=== PATIENT | male | born 1975 | race Caucasian/White ===

== ENCOUNTER 2019-07-04 13:05 | Day surgery (SDC) | payer OTHER ==
[2019-06-26 15:24] VITALS: BMI 39.1
[~2019-07-04 13:05] MED LIST: DEXAMETHASONE SOD PHOSPHATE 10 MG/ML 1 ML VIAL IV ONE; HYDROmorphone 0.5 MG/0.5 ML SYRINGE IVP PRN; LIDOCAINE 1% 20 ML VIAL (10MG/ML) FOR IV START INTRADERMA PRN; MIDAZOLAM 2 MG/2 ML VIAL IV PRN; ONDANSETRON 4 MG/2 ML VIAL IVP ONE; ceFAZolin 3 GM in SODIUM CHLORIDE 0.9% 100 ML IVPB ONE; fentaNYL (PF) 50 MCG/ML 2 ML AMP IVP PRN
[2019-07-04] MEDS: LACTATED RINGERS 1,000 ML IV SCH ×2 (14:00→23:42)
[2019-07-04] MEDS ORDERED: PROPOFOL 10 MG/ML 20 ML VIAL IV ONE (17:09)
[2019-07-04] MEDS ORDERED: fentaNYL (PF) 50 MCG/ML 2 ML AMP ONE (17:09)
[2019-07-04] MEDS ORDERED: LABETALOL 5 MG/ML VIAL MDV ONE (17:09)
[2019-07-04] MEDS ORDERED: SUCCINYLCHOLINE CHLORIDE VIAL 200 MG/10 ML VIAL IV ONE (17:09)
[2019-07-04] MEDS ORDERED: GLYCOPYRROLATE 0.2 MG/ML 2 ML VIAL ONE (17:09)
[2019-07-04] MEDS ORDERED: KETOROLAC 30 MG/ML 1 ML VIAL ONE (17:09)
[2019-07-04] MEDS ORDERED: ONDANSETRON 4 MG/2 ML VIAL ONE (17:09)
[2019-07-04] MEDS ORDERED: MIDAZOLAM 2 MG/2 ML VIAL ONE (17:09)
[2019-07-04] MEDS ORDERED: LIDOCAINE 1% INJ 10MG/ML (20 ML MDV) ONE (17:09)
[2019-07-04] MEDS ORDERED: ROCURONIUM BROMIDE 10 MG/ML 10 ML VIAL IV ONE (17:09)
[2019-07-04] MEDS ORDERED: LIDOCAINE 1% INJ 10MG/ML (20 ML MDV) SQ ONE (18:09)
[2019-07-04] MEDS ORDERED: BUPIVACAINE (PF) 0.5% 30 ML VIAL SQ ONE ×3 (18:09→21:14)
[2019-07-04] MEDS ORDERED: LACTATED RINGERS 1,000 ML IV ONE ×2 (20:24)
[2019-07-04] MEDS ORDERED: LIDOCAINE 1%-EPI 1:100,000 20 ML VIAL SQ ONE ×2 (20:37→21:14)
--- NOTE | 2019-07-04 22:07 | FL ---
EXAMINATION TYPE: FL guidance operating room, XR wrist limited LT DATE OF EXAM: 07/04/2019 CLINICAL HISTORY: Left wrist ligament tear. TECHNIQUE: Fluoroscopy. Intraoperative limited views left wrist. COMPARISON: None. FINDINGS: Fluoroscopic guidance was provided during open scapholunate ligament repair surgical proce dure performed by Dr. Molina. A total of 1 minute of fluoroscopic time was utilized during the p rocedure and 4 spot intraoperative images are acquired. Intraoperative images obtained show placement of external fixating wire scaphoid capitate level and a dditional smaller fixating screws through the lunate. IMPRESSION: As Above.
[2019-07-04] MEDS ORDERED: HYDROcodone/APAP 5-325MG 1 EACH TAB PO PRN (22:28)
[2019-07-04 23:30] VITALS: TEMP 97.7
[2019-07-05 01:54] VITALS: RESP 15
[2019-07-05 02:00] VITALS: BP 122/76; PULSE 91
--- NOTE | 2019-07-09 20:51 | P.OP ---
Date of Procedure: 07/04/19 Preoperative Diagnosis: Acute left wrist sprain with scapholunate ligament tear and carpal instability Postoperative Diagnosis: Acute left wrist sprain with complete (grade 4) scapholunate ligament tear and carpal instability Procedure(s) Performed: 1. Left wrist examination under anesthesia and manual application of joint stress for radiography by physician 2. Left wrist diagnostic arthroscopy with debridement and synovectomy 4. Open left scapholunate ligament repair 5. Percutaneous pinning of the left scaphocapitate joint 6. Posterior interosseous nerve (PIN) neurectomy 7. Application of short arm thumb spica splint by physician Implants: 2 Arthrex Elvira Corkscrew Anchors (1.7 mm 5 mm), 0.054 K wire Anesthesia: KHANGA, local Surgeon: Diaz Molina Estimated Blood Loss (ml): 25 Condition: stable Disposition: PACU Indications for Procedure: The patient is a pleasant 44-year-old male who sustained an injury to his left wrist after lifting a heavy salt tank. X-rays, MRI and clinical exam were all consistent with a scapholunate ligament tear. Treatment options (and associated risks and benefits) were discussed in the office. The patient expressed understanding, acceptance of these risks and wished to proceed with surgery. Consent forms were signed. The operative site was confirmed and marked. Description of Procedure: The patient was brought to the operative suite and positioned supine with the operative limb on an arm board. Prophylactic antibiotics were administered. Anesthesia was administered uneventfully. The left upper extremity was prepped and draped in standard, sterile fashion. A time-out was performed, confirming patient identifiers, the operative side, site and procedure to be performed: all team members expressed agreement. The wrist was initially examined under anesthesia: gross laxity was noted with scapholunate ballottement and Watsons test (with a prominent shift). The wrist was then examined with intraoperative fluoroscopy. There was marked widening of the scapholunate interval and DISI deformity. The wrist was ranged under live fluoroscopy, again demonstrating scapholunate instability. The patient was positioned for diagnostic arthroscopy. The hand was suspended in finger traps and 10 pounds of tension was applied through the traction tower. The limb was exsanguinated with an Esmarch and the tourniquet was inflated. Standard wrist arthroscopy portals were marked. The joint was insufflated with 5 cc of normal saline. The 3-4 portal was created, incising only the skin. A mosquito hemostat was used to create an arthrotomy, with immediate return of the insufflated fluid. Additional saline was injected into the 4-5 portal to confirm placement: fluid freely flowed out of the 3-4 portal. The arthroscope was inserted. A needle was used to confirm placement of the 4-5 portal, which was then created in a similar fashion. A standard diagnostic arthroscopy was performed. Inflamed synovial tissue was present, most prominent along the dorsal radioscaphoid and radiolunate joints. A complete scapholunate tear was identified, avulsed off the lunate. There was a large portion of ligament remaining that appeared to be of good quality. The diastasis between the scaphoid and lunate was dynamic, and less prominent with the wrist suspended in traction. The arthroscope did not easily pass into the joint, from either the radiocarpal or midcarpal space. No focal chondral defects or significant degenerative changes were identified. The lunotriquetral ligament was intact and the joint demonstrated no laxity. The TFCC was intact and showed good tension with trampoline test. A thorough debridement and synovectomy was performed. No loose joint bodies were identified. The frayed edges of the torn ligament were resected with an arthroscopic shaver. The camera and instruments were removed. The hand was removed from the traction tower. A midline incision was marked over the dorsal carpus. The skin was sharply incised and full-thickness skin flaps were elevated. The EPL tendon was identified at the edge of the extensor retinaculum. This was sharply released and mobilized to expose the dorsal capsule. The posterior interosseous nerve was identified on the floor of the fourth compartment. A 1-cm segment was sharply resected for adjunctive postoperative pain relief. An ulnarly-based capsular flap was sharply raised, extending parallel to the dorsal intercarpal ligament. The scapholunate tear was directly visualized. The remaining ligament was fairly robust and firmly anchored to its scaphoid attachment. The decision was made to proceed with primary repair. Joystick K wires (0.062) were drilled into the scaphoid and lunate. A small incision was made in the snuffbox. Spreading dissection was used to expose the capsule over the scaphoid, taking care to protect the dorsal branches of the radial artery and sensory nerves. The joysticks were used to manipulate and reduce the scapholunate joint, which was confirmed on orthogonal imaging. With the joint held reduced, a smooth 0.054 K wire was drilled across the scaphocapitate joint. The ligament attachment site on the lunate was abraded with a curette to stimulate bony healing. The insertion sites for the anchors were identified visually and confirmed with imaging. Two guidewires were advanced into the lunate near its scaphoid articulation, taking care not to violate the chondral surface. Placement was confirmed on imaging. The wires were removed and two Elvira corkscrew anchors were inserted: each showed excellent pullout strength after insertion. The attached 3-0 FiberWire sutures were used to repair the ligament back down to bone with horizontal mattress stitches. The joystick K wires were removed. Final images were obtained, confirming implant position and joint alignment. Excellent reduction of the scapholunate interval was achieved with improvement of both the radiolunate and scapholunate angles. The wound and joint were thoroughly irrigated with normal saline. The capsule and dorsal extrinsic ligaments were repaired with interrupted [id number]-dr-bfwcc stitches using 3-0 Fiberwire. The EPL tendon was inadvertently positioned volar to the scaphocapitate wire. The tendon did rest against the wire but passive thumb flexion and extension showed no restriction of tendon gliding. The tendon was left superficial to the extensor retinaculum, which was then repaired with interrupted 0-Vicryl suture. The tourniquet was released after 118 minutes at 250 mmHg and was not used for the remainder of the case; good hemostasis was obtained with manual pressure and electrocautery. All wounds were again irrigated. The K wire across the scaphocapitate joint was cut and capped with a Jurgan ball. The skin was closed around it with 4-0 nylon sutures. The subcutaneous tissues were reapproximated with interrupted 2-0 Vicryl sutures. The dorsal and radial incisions were closed with 4-0 nylon sutures. The portal incisions were closed with simple 5-0 nylon sutures. Local anesthetic with epinephrine was injected for adjunctive postoperative analgesia and hemostasis. Soft, sterile dressings were applied, followed by short arm plaster thumb spica splint. All sponge, needle and instrument counts were correct at the end of the case. The patient tolerated the procedure well and was taken to the recovery room in stable condition.
== END 2019-07-05 02:25 | disposition home or self-care (01) ==
LOC: OR 13:05 → 4SSUR 21:45 → OR 07-05 02:25
PROVIDERS: ATTEND Orthopaedic Surgery
DX: S63.502A Unspecified sprain of left wrist, initial encounter (principal); S63.8X2A Sprain of other part of left wrist and hand, initial encounter; M24.232 Disorder of ligament, left wrist; E03.9 Hypothyroidism, unspecified; Z83.3 Family history of diabetes mellitus; Z87.891 Personal history of nicotine dependence; Z79.890 Hormone replacement therapy; X50.0XXA Overexertion from strenuous movement or load, initial encounter
CPT/HCPCS: 73100; 29846; 25999; 64772; 25270; C1713; J2250; J0330; J1100; J0690; J2405; J2001; J3010; J1885; J2704

== ENCOUNTER → 2024-05-14 | Outpatient (CLI) | payer OTHER ==
[2024-05-14 08:26] VITALS: BP 133/85; PULSE 54; RESP 16; TEMP 97.1
--- NOTE | 2024-05-14 15:12 | P.PAINPG ---
Objective - Vital Signs Vital signs: Intake & Output 05/13/24 05/14/24 05/14/24 18:59 06:59 18:59 Weight 127.006 kg PQRS Measure Charge Sheet Comment: HISTORY OF PRESENT ILLNESS: A 49 yr old male as a referral from Dr Hennessy presents today w severe and chronic cervical pain > 6 mo secondary to radiculopathy, spondylosis and facet arthropathy without myelopathy for evaluation. Pt states pain level is provoked at 4-6 /10 in intensity, intermittent, localized in the lower cervical spine, predominantly axial, tingling in character w occasional shooting pain towards the hands/ fingers. Pain is provoked by hyperextension. Pain is alleviated by PT integrated w massage x 6 wks which he is currently in, heat, medications (Ibu), topical DeepBlue, repositioning and rest . Will have MRI cervical spine completed later today. PMH: OA, Hypothyroidism PSH: L Wrist Surgery (2019), L Knee Arthroscopy, Cholecystectomy SH: Never smoker, Occ ETOH use, No illicit drug use FH: DM, CAD All: See list Meds: See list REVIEW OF ORGAN SYSTEMS: CONSTITUTIONAL: No fevers or chills. No recent weight loss. NEUROLOGICAL: + numbness and tingling along the distal extremities. No seizure disorders or headaches. MUSCULOSKELETAL: + pain PSYCHIATRIC: Denies current depression or suicidal thoughts. Physical Examinations : Constitutional : Cooperative , not in acute distress . Neurologic : Cranial nerve II to XII intact. No focal neurological deficits. Psychiatric : alert & oriented x 3. Matching mood & appropriate affect. Judgment & insight intact. Musculoskeletal : Cervical Spine Motor strength in the deltoid and biceps: Normal right side. Normal Left side Motor strength biceps and the wrist extensors: Normal right side . Normal left side Motor strength in the triceps muscle: Normal right side. Normal left side Deep tendon reflexes: Normal at the biceps. Normal at Brachioradialis. Normal at triceps Vertebral body tenderness to deep palpation over Cervical facet loading test: positive bilaterally Spurling test: positive bilaterally Neck distraction test: positive bilaterally Brian sign: positive bilaterally Lumbar spine Motor strength lower extremities ,thigh and legs 5/5 Right side , 5/5 Left side Deep tendon reflexes : Normal Knee Jerk. Normal Ankle Jerk Vertebral body tenderness over C7 Buenrostro Test positive BL Lumbar facet Loading Test: positive Right / positive Left Range of motion of the lumbar spine Flexion 30 degrees, extension 10 degrees Straight Leg Raise test: Left/ Right positive at degrees Geovanni test: positive right / positive left. Severe tenderness over the Sacroiliac joint on the Right / Left sides Gaenslen test: positive bilaterally Seated flexion test: positive bilaterally. Sacral spine : Severe tenderness over the Sacroiliac joint: right side / left side Range of motion: Flexion of the lumbar spine <60 degrees Range of motion: Extension of the lumbar spine <20 degrees Gaenslen's Test positive Geovanni test: positive right side / left side Thigh Thrust Test Sacral Thrust Test Imaging: X ray cervical spine from 04/11/24 reviewed Assessment/ Plan : Cervical radiculopathy Recommendation of . Risks, benefits of procedure discussed and patient verbalized understanding. Admits to anti- coagulant use or medical history of diabetes. Protocol for discontinuation/ continuation of medications get procedure discussed. All questions answered. I have spent greater than 30 minutes on patient care today. Dr Mckee was available by phone for the evaluation of this patient. The time was used to review the medical records including relevant urine studies and Prescription history (MAPs), review of the available imaging, evaluation and examination of the patient, coordination of care with the medical staff and if applicable referring physicians, as well as creation of the medical record PQRS Narrative: Smoking Status Former smoker Home Medications: Ambulatory Orders Synthroid (Unknown Dose) 1 tab PO DAILY 06/26/19 HYDROcodone/APAP 5-325MG [Tunica 5-325] 1 tab PO Q4HR PRN #25 tab 07/04/19 Controlled Substance Measures - Controlled Substance Measures Is patient prescribed a controlled substance at discharge?: No
== END ==
LOC: PNWHC3 07:33
PROVIDERS: ATTEND Specialist
DX: M54.12 Radiculopathy, cervical region (principal); Z87.891 Personal history of nicotine dependence
CPT/HCPCS: 99211

== ENCOUNTER 2024-06-17 08:11 | Day surgery (SDC) | payer OTHER ==
[2024-06-17] MEDS ORDERED: LACTATED RINGERS 1,000 ML IV SCH (09:53)
[2024-06-17 09:58] VITALS: RESP 16; TEMP 98
[2024-06-17] MEDS ORDERED: IOPAMIDOL M300 15ML VIAL ONE (10:59)
[2024-06-17] MEDS ORDERED: DEXAMETHASONE SOD PHOSPHATE 10 MG/ML 1 ML VIAL ONE (10:59)
--- NOTE | 2024-06-17 11:21 | FL ---
Intraoperative/procedural fluoroscopic services were provided for cervical epidural steroid injection . Total fluoroscopy time is 14.9 seconds with a total of 3 submitted images to PACS. Total DAP 0.0300 6 mGym2. Please see the operative note for further details. [facility], , 06/17/2024 11:19 AM
--- NOTE | 2024-06-17 11:24 | P.PCN ---
Description of Procedure: PROCEDURE 1. Injection of radio contrast material into cervical epidural space, cervical epidurogram, interpretation of cervical epidurogram, Cervical epidural steroid injection under fluoroscopic guidance, C6-7 (fluoroscopy images available in the radiology department ) 2. Cervical epidurogram. PREOPERATIVE DIAGNOSIS: 1- Cervical Degenerative Disc Diseases 2- Cervical radiculopathy., 3-cervical spondylosis with cervical Facet arthropathy without myelopathy.4-cervical spinal stenosis POSTOPERATIVE DIAGNOSIS: : 1- Cervical Degenerative Disc Diseases , 2- Cervical radiculopathy. 3-,cervical spondylosis with cervical Facet arthropathy without myelopathy. 4-cervical spinal stenosis ANESTHESIA: Local anesthetics infiltration. In the OR continuous pulse ox, EKG, blood pressure and verbal communication was maintained. EBL : None PROCEDURE INDICATION: The patient with neck pain and radiculitis unresponsive to conservative treatment consents for procedure. Discussed the procedure, alternatives and possible complications which may include increased pain, infection, bleeding, nerve damage, paralysis all of which could be permanent. Patient understands and all questions were answered. PROCEDURE DESCRIPTION : After getting consent patient was taken to the OR , positioned in prone position and time out was completed. A pillow was placed under the patients chest to increase the cervical interlaminar space. The cervical area was prepped and draped in the usual sterile fashion. Using anterior-posterior fluoroscopy, interlaminar space was identified and the skin over this site was marked and then infiltrated with 1% lidocaine subcutaneously. Subsequently, a 20-gauge 3-1/2-inch Tuohy epidural needle was inserted and advanced toward the epidural space with the loss of resistance technique using a syringe filled with preservative-free normal saline and guided by AP and lateral fluoroscopy. Negative CSF, negative blood, negative paresthesia. The correct needle position in the epidural space was verified with the injection of 2 mL of the water soluble contrast dye Isovue-200 and observing an excellent epidurogram with the epidural spread of the dye, after repeat negative aspiration 3 mL solution was injected which consists of 1 mL of preservative-free normal saline mixed with 2 mL of 20 mg dexamethasone and a washout of epidurogram was seen. Needle was withdrawn intact, skin was cleansed, and bandages were applied. Disposition: Patient tolerated the procedure well. No complication. Patient was placed in supine position and transferred to the recovery room area in stable condition and there was no evidence of upper or lower extremity motor or sensory deficit after the procedure patient was discharged from recovery room after discharge criteria met and home discharge instructions was given by the staff and patient will follow with the pain clinic in 2-4 weeks
[2024-06-17 11:54] VITALS: BP 134/76; PULSE 72
== END 2024-06-17 11:50 | disposition home or self-care (01) ==
LOC: ORPAIN 08:11
PROVIDERS: ATTEND Pain Medicine Interventional Pain Medicine
DX: M47.22 Other spondylosis with radiculopathy, cervical region (principal); M48.02 Spinal stenosis, cervical region
CPT/HCPCS: 62321; J1100; Q9967

== ENCOUNTER → 2024-07-16 | Outpatient (CLI) | payer OTHER ==
[2024-07-16 09:17] VITALS: BP 142/90; PULSE 61; RESP 16; TEMP 97.7
--- NOTE | 2024-07-16 15:15 | P.PAINPG ---
Objective - Vital Signs Vital signs: Vital Signs Temp 97.7 F 07/16/24 09:10 Pulse 61 07/16/24 09:10 Resp 16 07/16/24 09:10 BP 142/90 07/16/24 09:10 Pulse Ox 95 07/16/24 09:10 FiO2 Intake & Output 07/15/24 07/16/24 07/16/24 18:59 06:59 18:59 Weight 131.542 kg PQRS Measure Charge Sheet Mode of Arrival: Ambulatory Comment: HISTORY OF PRESENT ILLNESS: A 49 yr old male w at side presents today w severe and chronic cervical pain > 6 mo secondary to radiculopathy, spondylosis and facet arthropathy without myelopathy for evaluation s/p SANDIP C6-C7 #1. Pt states he experienced 0% pain relief s/p procedure. Pt states pain level is provoked at 4-6 /10 in intensity, intermittent, localized in the lower cervical spine, predominantly axial, tingling in character w occasional shooting pain towards the hands/ fingers. Pain is provoked by hyperextension. Pain is alleviated by PT integrated w massage x 6 wks which he is currently in, heat, medications, topical, repositioning and rest . Will have MRI cervical spine completed later today. Inteventional procedures include SANDIP C6-C7 x1 Medications include Ibu, DeepBlue REVIEW OF ORGAN SYSTEMS: CONSTITUTIONAL: No fevers or chills. No recent weight loss. NEUROLOGICAL: + numbness and tingling along the distal extremities. No seizure disorders or headaches. MUSCULOSKELETAL: + pain PSYCHIATRIC: Denies current depression or suicidal thoughts. Physical Examinations : Constitutional : Cooperative , not in acute distress . Neurologic : Cranial nerve II to XII intact. No focal n eurological deficits. Psychiatric : alert & oriented x 3. Matching mood & appropriate affect. Judgment & insight intact. Musculoskeletal : Cervical Spine Motor strength in the deltoid and biceps: Normal right side. Normal Left side Motor strength biceps and the wrist extensors: Normal right side . Normal left side Motor strength in the triceps muscle: Normal right side. Normal left side Deep tendon reflexes: Normal at the biceps. Normal at Brachioradialis. Normal at triceps Vertebral body tenderness to deep p alpation over Cervical facet loading test: positive bilaterally Spurling test: positive bilaterally Neck distraction test: positive bilaterally Brian sign: positive bilaterally Lumbar spine Motor strength lower extremities ,thigh and legs 5/5 Right side , 5/5 Left side Deep tendon reflexes : Normal Knee Jerk. Normal Ankle Jerk Vertebral body tenderness over C7 Buenrostro Test positive BL Lumbar facet Loading Test: positive Right / positive Left Range of motion of the lumbar spine Flexion 30 degrees, extension 10 degrees Straight Leg Raise test: Left/ Right positive at degrees Geovanni test: positive right / positive left. Severe tenderness over the Sacroiliac joint on the Right / Left sides Gaenslen test: positive bilaterally Seated flexion test: positive bilaterally. Sacral spine : Severe tenderness over the Sacroiliac joint: right side / left side Range of motion: Flexion of the lumbar spine <60 degrees Range of motion: Extension of the lumbar spine <20 degrees Gaenslen's Test positive Geovanni test: positive right side / left side Thigh Thrust Test Sacral Thrust Test Imaging: X ray cervical spine from 04/11/24 reviewed MRI non contrast cervical spine from 05/14/24 reviewed showing mild disc bulges in C3-C4, C4-C5 & C5-C6, moderate disc bulges in C6-C7. Mild canal stenoses in C5-C6& C6-C7. Assessment/ Plan : Cervical radiculopathy Will follow up w Orthopedic surgeon to explore additional treatment options. All questions answered. I have spent greater than 30 minutes on patient care today. Dr Mckee was available by phone for the evaluation of this patient. The time was used to review the medical records including relevant urine studies and Prescription history (MAPs), review of the available imaging, evaluation and examination of the patient, coordination of care with the medical staff and if applicable referring physicians, as well as creation of the medical record - Pain Location Bilateral Lower Neck Non-Pharmacological Interventions: Heat, Ice, Inactivity, Massage, Physical Therapy, Position/Reposition, Sitting Pharmacological Interventions: Epidural, PRN Medication, Topical Medication PQRS Narrative: Smoking Status Former smoker Blood Pressure 142/90 Pain Intensity [Bilateral 0 Lower Neck] Scale Used Numeric (1 - 10) Hx Alcohol Use (MH) No Home Medications: Ambulatory Orders Levothyroxine Sodium [Synthroid] 50 mcg PO DAILY 06/13/24 Controlled Substance Measures - Controlled Substance Measures Is patient prescribed a controlled substance at discharge?: No
== END ==
LOC: PNWHC3 08:42
PROVIDERS: ATTEND Specialist
DX: M54.12 Radiculopathy, cervical region (principal); G89.29 Other chronic pain; Z87.891 Personal history of nicotine dependence
CPT/HCPCS: 99211